=== PATIENT | male | born 1955 | race Caucasian/White ===

== ENCOUNTER → 2019-03-24 | Outpatient (CLI) | payer BC ==
--- NOTE | 2019-03-25 10:43 | PCVCIMAG ---
APPROVED REPORT Study performed: 03/24/2019 12:42:39 Exam: Stress Echocardiogram Indication: Chest pain,SOA,Abn EKG Patient Location: Echo lab Stress Nurse: Tosin Quan RN Room #: 2 Status: routine Ht: 5 ft 8 in HR: 66 bpm BP: 146/90 mmHg Rhythm: NSR Medical History Medical History: HTN, Hyperlipidemia Cardiac Risk Factors: HTN, Hyperlipidemia, FHX of CAD Previous Cardiac Procedures: none Pretest Chest Pain Characteristics: No chest pain Exercise History: Indeterminate Procedure The patient underwent an Exercise Stress Test using the Juan Jose Protocol. Blood pressure, heart rate, and EKG were monitored. An Echocardiogram was performed by certified appliance service technician in four stages in quad fashion. At peak stress, four selected images were obtained and placed side by side with resting images for comparison. Stress Test Details Stress Test: Exercise stress testing was performed using a Juan Jose protocol. HR Resting HR: 66 bpmMax Heart Rate (APMHR): 159 bpm Max HR Achieved: 144 bpmTarget HR (85% APMHR): 135 bpm % of APMHR: 90 Recovery HR: 83 bpm HR response to stress: Normal HR response to stress BP Resting BP: 146/90 mmHg Max BP: 140/60 mmHg Recovery BP: 122/78 mmHg BP response to stress: Blunted blood pressure response to stress. ECG Resting ECG: Sinus Rhythm, NSSTT changes Stress ECG: Sinus Rhythm, nonspecific ST-T abnormalities ST Change: equivocal Maximum ST Deviation: -2.25 mm Arrhythmia: APC's Recovery ECG: Sinus Rhythm Recovery ST Change: Eqivocally ischemic Recovery ST Deviation: -1.70 mm Clinical Reason for Termination: Maximal effort Stress Symptoms: Chest pressure Exercise duration: 8 min 17 sec Highest Stage Achieved: Stage 3: 3.4 mph at 14% grade. Exercise capacity: 10.4 METs Overall Exercise Capacity for Age: Average Scale: Sedentary Angina Score: Non-Limiting No complications. Stress ECG Conclusion The patient exercised according to the JUAN JOSE protocol for 8:17mins; achieving a work level of10.4 METS. The resting heart rate of 66 bpm juvencio to a maximum heart rate of 144 bpm. This value represent 90% of the maximal, age-predicted heart rate. The resting blood pressure of 146/90 mmHg, juvencio to a maximum blood pressure of 146/90mmHg. The exercise test was stopped due tofatigue. Ventura Treadmill Score is 15.3 which is Low risk. Pre-Stress Echo The resting Echocardiogram showed normal left ventricular contractility with an estimated Ejection Fraction of about 50-55%. Post-Stress Echo The stress Echocardiogram showed abnormal left ventricular contractility with an estimated Ejection Fraction of about 55%. The stress Echocardiogram demonstrated wall motion abnormality in the mid distal septum,[place] freeman. Overall contractility was mildly blunted with segmental wall motion abnormalities as listed above. Mild dilitation of the apex was seen Conclusion Clinical Response: Equivocal Exercise Capacity: Average Stress ECG Response: Equivocal Stress Echo Images: Ischemic Abnormal stress echocardiogram. Incidental finding: the ascending aorta diameter is 4.0 cm No prior study available for comparison. <Conclusion> Abnormal stress echocardiogram. Incidental finding: the ascending aorta diameter is 4.0 cm
== END | disposition home or self-care (01) ==
LOC: PCVCIMAG 12:25
PROVIDERS: ATTEND Internal Medicine Cardiovascular Disease
DX: R07.9 Chest pain, unspecified (principal); R94.31 Abnormal electrocardiogram [ECG] [EKG]; I25.110 Atherosclerotic heart disease of native coronary artery with unstable angina pectoris; E78.00 Pure hypercholesterolemia, unspecified; R07.2 Precordial pain; I10 Essential (primary) hypertension; R94.39 Abnormal result of other cardiovascular function study; Z79.899 Other long term (current) drug therapy
CPT/HCPCS: 93325; 93351

== ENCOUNTER → 2019-08-01 | Outpatient (CLI) | payer BC ==
--- NOTE | 2019-08-01 16:58 | PCVCIMAG ---
APPROVED REPORT Study performed: 08/01/2019 15:35:48 Exam: Stress Echocardiogram Indication: CAD s/p CABG, HTN Patient Location: Echo lab Stress Nurse: Esther Francisco RN Status: routine Ht: 5 ft 8 in HR: 58 bpm BP: 120/70 mmHg Rhythm: Bradycardia Procedure The patient underwent an Exercise Stress Test using the Juan Jose Protocol. Blood pressure, heart rate, and EKG were monitored. An Echocardiogram was performed by debug technician in four stages in quad fashion. At peak stress, four selected images were obtained and placed side by side with resting images for comparison. Stress Test Details Stress Test: Exercise stress testing was performed using a Juan Jose protocol. HR Resting HR: 58 bpmMax Heart Rate (APMHR): 158 bpm Max HR Achieved: 142 bpmTarget HR (85% APMHR): 134 bpm % of APMHR: 89 Recovery HR: 69 bpm HR response to stress: Normal HR response to stress BP Resting BP: 120/70 mmHg Max BP: 144/66 mmHg Recovery BP: 122/60 mmHg BP response to stress: Normal blood pressure response to stress. ECG Resting ECG: Sinus Rhythm, Sinus Bradycardia Stress ECG: Sinus Rhythm ST Change: Normal Arrhythmia: occasional PVC Recovery ECG: Sinus Rhythm Recovery ST Change: Normal Recovery Arrhythmia: None Clinical Reason for Termination: Maximal effort Stress Symptoms: Dyspnea Exercise duration: 10 min 8 sec Highest Stage Achieved: Stage 4: 4.2 mph at 16% grade. Exercise capacity: 13.4 METs Overall Exercise Capacity for Age: Normal Scale: Active Angina Score: None Pre-Stress Echo The resting Echocardiogram showed normal left ventricular contractility with an estimated Ejection Fraction of about >55%. The resting echocardiogram demonstrated normal wall motion in all wall segments. Post-Stress Echo The stress Echocardiogram showed normal left ventricular contractility with an estimated Ejection Fraction of about 65%. Compared to rest, there were no stress-induced wall motion abnormalities. Clinical No clinical or ECG evidence for ischemia. Conclusion Clinical Response: Non-ischemic Exercise Capacity: Average Stress ECG Response: Non-ischemic Stress Echo Images: Non-ischemic The left ventricle is normal in size and wall thickness in both the rest and stress images. Normal color doppler. No stenosis or regurgitation seen in the mitral, aortic,tricuspid or pulmonic valves. Other Information Study Quality: Adequate <Conclusion> The left ventricle is normal in size and wall thickness in both the rest and stress images. Normal color doppler. No stenosis or regurgitation seen in the mitral, aortic,tricuspid or pulmonic valves.
== END | disposition home or self-care (01) ==
LOC: PCVCIMAG 15:18
PROVIDERS: ATTEND Internal Medicine Cardiovascular Disease
DX: I25.10 Atherosclerotic heart disease of native coronary artery without angina pectoris (principal); I10 Essential (primary) hypertension; Z95.1 Presence of aortocoronary bypass graft
CPT/HCPCS: 93325; 93351